=== PATIENT | female | born 1995 ===

== ENCOUNTER 2021-05-28 23:55 | Emergency (ER) | payer OTHER, SELFPAY ==
[2021-05-28 23:58] VITALS: BP 99/60; PULSE 104; RESP 18; TEMP 36.4; O2SAT 99
--- NOTE | 2021-05-29 01:58 | PC.NURSE ---
Patient called to go to room, no answer and not seen in waiting room.
--- NOTE | 2021-05-29 03:14 | PC.NURSE ---
Patient left ED, called for room and no answer and no where to be found in waiting room.
== END 2021-05-29 03:14 | disposition left against medical advice (07) ==
DX: Z53.21 Procedure and treatment not carried out due to patient leaving prior to being seen by health care provider (principal)
CPT/HCPCS: 99199

== ENCOUNTER 2021-06-18 10:44 | Emergency (ER) | payer OTHER, SELFPAY ==
--- NOTE | 2021-06-18 10:50 | PC.NURSE ---
pt seen ambulating towards vestibule. pt asked if they were leaving. pt reports the vending machine is empty. i'm going to the grocery store. pt informed if she were to leave building, that she would have to re register as a new pt. pt rolled her eyes and informed this RN that she was just going to go somewhere else . pt amb out of building with steady gait and in no acute distress.
== END 2021-06-18 10:50 | disposition left against medical advice (07) ==
DX: Z53.21 Procedure and treatment not carried out due to patient leaving prior to being seen by health care provider (principal)
CPT/HCPCS: 99199